=== PATIENT | male | born 1990 | race Caucasian/White ===

== ENCOUNTER → 2023-11-02 12:00 | Outpatient (REF) | payer BC, SELFPAY | LOC: HWRAD 12:00 | PROVIDERS: ATTENDING PHYSICIAN Physician Assistant | DX: R53.83 Other fatigue (principal) | CPT/HCPCS: 71046 ==

== ENCOUNTER → 2024-03-01 09:00 | Outpatient (REF) | payer BC, SELFPAY | LOC: DHSLP 09:00 | PROVIDERS: ATTENDING PHYSICIAN Physician Assistant | DX: G47.30 Sleep apnea, unspecified (principal); R06.83 Snoring; R53.83 Other fatigue; E66.3 Overweight; Z68.29 Body mass index [BMI] 29.0-29.9, adult; E55.9 Vitamin D deficiency, unspecified; E78.2 Mixed hyperlipidemia | CPT/HCPCS: 95806 ==